=== PATIENT | male | born 1975 | race Caucasian/White ===

== ENCOUNTER 2025-02-02 17:38 | Emergency (ER) | payer BC, MEDICAID, OTHER ==
[~2025-02-02] VITALS: Ht 182.9 cm; Wt 93.2 kg
[2025-02-02 17:49] VITALS: TEMP 99.7
--- NOTE | 2025-02-02 17:57 | Physician Documentation ---
History of Present Illness Chief Complaint: Vomiting Stated Complaint: PAIN ALL OVER HPI This is a 49-year-old male who presents with three days of generalized malaise, headache, and body aches with development of diarrhea yesterday and vomiting today. Patient reports subjective fever Medication Reconciliation Allergies: Coded Allergies: codeine (Verified Allergy, Unknown, vomiting, 02/02/25) Past Medical History Past Medical History: No Pertinent History Past Surgical History: noncontributory Alcohol Use: Occasionally Drug Use: none Lives In: Home Occupation: employed Physical Exam Vital Signs: Temperature: 99.7, Source: Temporal, Heart Rate: 112, Respiratory Rate: 18, BP: 137/85, Pulse Oximetry: 98, Weight: 93.180 Oxygen Flow Rate: 0 Physical Exam VITALS: Reviewed and as above. GENERAL: Alert, nontoxic appearing, no apparent distress. HEENT: RESPIRATORY: No increased work of breathing, no respiratory distress, speaking in full clear sentences CHEST: CV: BACK: GI: MUSCULOSKELETAL: SKIN: NEURO: PSYCH: Progress Results/Orders Results/Orders Vital Signs 02/02/25 17:49 Temp 99.7 Pulse 112 Resp 18 B/P (MAP) 137/85 Pulse Ox 98 O2 Flow Rate 0 Medical Decision Making Findings MSE performed in triage and patient returned to ED lobby by nursing staff to await available ED room This 49-year-old male presents with a what I suspect is viral gastroenteritis. I did offer IV fluids and Zofran however he refused. I then offered Toradol to help with the pain which he accepted. At this point I do not see any need for further evaluation as he remains nontoxic appearing and hemodynamically stable.. Differential Dx:Considerations: Include: AAA, Angina/OK, Aortic dissection, Appendicitis, Bowel obstruction, Cholangitis, Cholelithasis, Constipation, Diverticular disease, Esophageal rupture, Esophagitis, Gastritis/PUD, Gastroenteritis, GI hemorrhage, Hernia, Hepatitis, Inflammatory BD, Ischemic bowel, Pancreatitis, Porphyria, Testicular torsion, Trauma, intraabdominal, Urinary obstruction, Urinary tract infection, Urolithiasis, Other Departure Disposition: HOME / SELF CARE / HOMELESS Impression: Primary Impression: Viral gastroenteritis Discharge Instructions: Gastritis, Adult, Viral Gastroenteritis, Adult Referrals: NO PRIMARY CARE PROVIDER (PCP) Signature Scribe Signature: f Attestation: Scribed for Bernard Arevalo Janitor Custodian by Bernard Malave NP . 02/02/25 23:16 BETH ANDREA [employer] Feb 02, 2025 17:57 BERNARD AREVALO NP Feb 02, 2025 19:46
[2025-02-02 18:38] LABS: BASOPHILS % (AUTO) 0.3 % (0-1); EOSINOPHILS # (AUTO) 0.6 X10'3 (0-0.9); EOSINOPHILS % (AUTO) 4.5 % (0-6); HEMATOCRIT 40.6 % (42.0-52.0); HEMOGLOBIN 13.9 g/dl (14.0-17.9); LYMPHOCYTES # (AUTO) 0.8 X10'3 (1.1-4.8); LYMPHOCYTES % (AUTO) 5.7 % (21-51); MEAN CORPUSCULAR HEMOGLOBIN 27.6 PG (27.0-31.0); MEAN CORPUSCULAR HGB CONC 34.2 g/dL (33.0-36.5); MEAN CORPUSCULAR VOLUME 80.6 FL (78-98); MEAN PLATELET VOLUME 7.3 FL (7.4-10.4); MONOCYTES % (AUTO) 6.7 % (2-12); NEUTROPHILS # (AUTO) 11.9 X10'3 (1.8-7.7); NEUTROPHILS % (AUTO) 82.8 % (42-75); PLATELET COUNT 269 X10'3 (140-440); RED BLOOD COUNT 5.04 X10'6 (4.70-6.10); RED CELL DISTRIBUTION WIDTH 13.3 % (11.5-14.5); WHITE BLOOD COUNT 14.4 X10'3 (4.5-11.0)
[2025-02-02 19:00] LABS: ALANINE AMINOTRANSFERASE 115 U/L (12-78); ALBUMIN 2.6 G/DL (3.4-5.0); ALBUMIN/GLOBULIN RATIO 0.6 (1.1-1.5); ALKALINE PHOSPHATASE 155 IU/L (46-116); ANION GAP 8 (8-16); ASPARTATE AMINO TRANSFERASE 55 U/L (10-37); BILIRUBIN,TOTAL 0.7 MG/DL (0.1-1.0); BLOOD UREA NITROGEN 28 MG/DL (7-18); BUN/CREATININE RATIO 11.2 (10.0-20.0); CHLORIDE 98 MMOL/L (99-107); CREATININE 2.49 MG/DL (0.60-1.10); GLUCOSE 138 MG/DL (70-104); LIPASE 22 U/L (16-77); POTASSIUM 3.7 MMOL/L (3.5-5.1); SODIUM 135 MMOL/L (135-145); TOTAL CARBON DIOXIDE 28.7 MMOL/L (24-32); TOTAL PROTEIN 7.2 G/DL (6.4-8.2); eCRCL 39 ML/MIN; eGFR 27 ML/MIN
[2025-02-02 19:11] LABS: BILIRUBIN,URINE NEGATIVE (Neg); CLARITY,URINE SLIGHTLY CLOUDY (Clear); COLOR,URINE YELLOW (Yellow); GLUCOSE, URINE NEGATIVE (Neg); KETONES,URINE NEGATIVE (Neg); LEUKOCYTE ESTERASE ,URINE NEGATIVE (Neg); NITRITES, URINE NEGATIVE (Neg); OCCULT BLOOD,URINE SMALL (Neg); PROTEIN,URINE 100 mg/dl (Neg)
[2025-02-02 19:16] LABS: UA COLLECTION TYPE URINAL
[2025-02-02 19:23] LABS: MUCUS STRANDS FEW /LPF (Neg); SQUAMOUS EPITHELIAL CELL,UR FEW /LPF (FEW)
[2025-02-02 19:25] LABS: BACTERIA,URINE NONE SEEN /HPF (Neg)
[2025-02-02] MEDS: ondansetron/PF 4mg/2ml inj IV ONE (19:45)
[2025-02-02] MEDS: normal saline 1000ML IV soln IVB ONE (19:45)
[2025-02-02] MEDS: ketorolac trometh 30MG/ML vial 30 MG/ML VIAL IM ONE (19:57)
[2025-02-02 20:00] VITALS: BP 107/88; PULSE 100; O2SAT 98
[2025-02-02 20:07] VITALS: RESP 15
== END 2025-02-02 20:11 | disposition home or self-care (01) ==
LOC: ER 17:39
DX: A08.4 Viral intestinal infection, unspecified (principal); Z88.5 Allergy status to narcotic agent
CPT/HCPCS: 36415; 80053; 81001; 83690; 85025; 87088; 96372; 99283; J1885; J7030